=== PATIENT | male | born 1955 | race Caucasian/White ===

== ENCOUNTER 2016-12-10 15:48 | Outpatient (CLI) | payer OTHER ==
--- NOTE | 2016-12-10 16:49 | DIAGNOSTIC IMAGING REPORT ---
PROCEDURE: XR SHOULDER 2 OR MORE VW-RIGHT INDICATION: PX IN RIGHT SHOULDER TECHNIQUE: Three views. COMPARISON: None. FINDINGS: Severe osteoarthritis with obliteration of the joint space and sclerosis of the humeral head and glenoid. IMPRESSION: 1. Severe degenerative changes with complete obliteration of the joint space.
== END 2016-12-10 23:00 ==
LOC: XR SRH 15:48
DX: M19.011 Primary osteoarthritis, right shoulder (principal)